=== PATIENT | female | born 2000 | race Caucasian/White ===

== ENCOUNTER 2024-12-30 12:40 | Outpatient (AMB) | payer BC, SELFPAY ==
[2024-12-30 12:44] VITALS: BP 120/72; PULSE 130; O2SAT 99; BMI 18.8
--- NOTE | 2024-12-30 12:44 | MHC.OFFVIS ---
Vital Signs 12/30/24 12:44 Height 5 ft 5 in Weight 113 lb BMI 18.8 BP 120/72 Blood Pressure Location Rt brachial Position Sitting Pulse 130 H Pulse Source Pulse Oximeter Pulse Oximetry (%) 99 Oxygen Delivery Method Room Air Intake Visit Reasons: ENP: Right hand tremors [employer] Required: No Allergies No Known Allergies Allergy (Verified 12/30/24 12:45) Medication List - Last Reconciled 12/30/24 by Kriss Mcdermott MD glycopyrrolate 1 mg PO BID norethindrone (contraceptive) 0.35 mg PO DAILY propranolol 20 mg PO BID rizatriptan 5 mg PO Q2-4H PRN HPI Comments Details: 24y/o Right handed female comes for evaluation of right hand tremors that started 6 years ago . The tremors are with action - mainly writing ( writes with her left hand ) has trouble applying makeup, eating soup, drinking ( uses left).she denies pain . she is not sure of any triggers . she denies shoulder pain but has neck pain and stiffness. No radiating pain form the neck.she also has tightness in her jaws.No family h/o tremors, dystonia. she used to be a dancer- very flexible . [facility] Medical History (Updated 12/30/24 @ 13:42 by Kriss Mcdermott MD) Coarse tremors Hyperhidrosis Underweight Tremor of right hand Migraine Surgical History [facility] teeth removed Family History Father Basal cell carcinoma Paternal Grandmother Breast cancer in female Paternal Grandfather Cancer, colon Social History Alcohol intake: current Physical Exam Vital Signs: Last Vital Signs Pulse 130 H 12/30/24 12:44 BP 120/72 12/30/24 12:44 Pulse Ox 99 12/30/24 12:44 Oxygen Delivery Method Room Air 12/30/24 12:44 BMI result Body Mass Index 18.8 Const General: cooperative, healthy appearing, comfortable and no acute distress Nutritional Appearance: average body habitus Orientation/consciousness: patient oriented x3 Eyes Pupils: Equal, round and reactive pupils present Neuro Other: retrognathia tightness in neck muscles - scalene Right hand high amplitude action tremors - with writing unable to write archimedes spiral was ok General: patient oriented x3, gait normal, tone normal, moves all extremities and no focal motor deficits Cranial nerves: Yes Facial sensation intact/muscles of mastication intact, Yes Equal, round and reactive pupils present, Yes Bilaterally intact EOM present, Yes Nystagmus not present, Yes Normal facial strength present, Yes Midline tongue present, Yes Symmetric palate elevation present and Yes Ability to bilaterally elevate shoulders present Cognition (Neuro): normal cognition Gait exam (Neuro): Normal gait present Motor exam (neuro): 5/5 motor strength present throughout and Normal motor muscle tone present throughout Deep tendon reflexes (DTR's): Right triceps reflex intensity grade: 2+, Left triceps reflex intensity grade: 2+, Rt Biceps (C5, C6): 2+, Left biceps reflex intensity grade: 2+, Right brachioradialis reflex intensity grade: 2+, Left brachioradialis reflex intensity grade: 2+, Right patellar reflex intensity grade: 3+ and Left patellar reflex intensity grade: 3+ Coordination: [id number] test normal Assessment & Plan Assessment & Plan (1) Coarse tremors: Comment: ? focal dystonia Code(s): G25.2 - Other specified forms of tremor Category: Medical Plan Continue propranalol 20mg bid will trial on gabapentin 100mg qhs she will be a good candidate for JB TAPS therapy to improve her quality of life Medications: New gabapentin 100 mg PO BEDTIME 30 caps 0RF Coding Level of Care Code New Pt Level 4 (05294) Complex EM visit Add On G2211 Diagnoses Coarse tremors G25.2
== END 2024-12-30 13:35 | disposition home or self-care (01) ==
LOC: HO.HSMS 12:40
PROVIDERS: PCP Internal Medicine; Visit Provider Psychiatry & Neurology Neurology
DX: G25.2 Other specified forms of tremor (principal)
CPT/HCPCS: 99204

== ENCOUNTER → 2024-12-30 12:40 | Outpatient (BNVA) | payer BC, SELFPAY | PROVIDERS: PCP Internal Medicine; Visit Provider Psychiatry & Neurology Neurology ==

== ENCOUNTER 2025-04-29 15:28 | Outpatient (AMB) | payer BC, SELFPAY ==
--- OUTSIDE RECORDS SUMMARY | 2025-04-24 23:59 | XMS_ITS | Continuity of Care Document ---
Author Organization [facility] Address [address] [place] [address], [address] [address]- Care Team Providers Care Tester [employer] Name Role Phone Stanford JOVEL, Ora Chaves Primary Care Physician Encounter [facility] Date(s): 03/25/25 - 04/24/25 [facility] [address], [address] [place] [address] Attending Physician: Admtr, Ar8 Admitting Physician: Admtr, Ar8 Referring Physician: Admtr, Ar8 Encounter Type: Triage Allergies, Adverse Reactions, Alerts No Known Allergies Immunizations Given and Recorded Vaccine Date Status Refusal Reason influenza virus vaccine, inactivated 08/29/24 Lucian rded influenza virus vaccine, inactivated 08/24/23 Lucian rded influenza virus vaccine, inactivated 08/18/22 Lucian rded SARS-CoV-2 (COVID-19) mRNA BNT-162b2 vac 11/06/21 Recorded tetanus/diphtheria/pertussis, acel(Tdap) 06/17/20 Recorded tetanus/diphtheria/pertussis, acel(Tdap) 01/29/09 Recorded Meningococcal Conjugate Vaccine 04/26/16 Recorded Meningococcal Conjugate Vaccine 01/29/09 Recorded Varicella Virus Vaccine 07/20/15 Recorded Varicella Virus Vaccine 02/22/99 Recorded Poliovirus Vaccine, Inactivated 03/10/03 Recorded Poliovirus Vaccine, Inactivated 98 Recorded Poliovirus Vaccine, Inactivated 98 Recorded Measles/Mumps/Rubella Virus Vaccine 03/10/03 Recor ded Measles/Mumps/Rubella Virus Vaccine 02/22/99 Recor ded diphtheria/tetanus/pertussis, acel(DTaP) 03/10/03 Recorded diphtheria/tetanus/pertussis, acel(DTaP) 06/06/99 Recorded hepatitis B pediatric vaccine 08/26/99 Recorded hepatitis B pediatric vaccine 98 Recorded hepatitis B pediatric vaccine 98 Recorded Haemophilus B Conj Vaccine (oldterm) 06/06/99 Lucian rded Haemophilus B Conj Vaccine (oldterm) 98 Lucian rded Haemophilus B Conj Vaccine (oldterm) 98 Lucian rded Haemophilus B Conj Vaccine (oldterm) 98 Lucian rded Medications glycopyrrolate 1 mg oral tablet 1, tablet, By Mouth, 2 times a day, # 180 tablet, Refills 1, Maintenance, 12/12/24 12:41:00 PM EST, Route to Pharmacy Electronically, [id number], 165.5, cm, 10/31/24 14:02:00 EST, Height Start Date: 12/12/24 Status: Ordered Quantity: 180.0 Unit: tablet Repeat number: 1 magnesium glycinate By Mouth, 0 Refills, Maintenance, 02/27/25 3:26:00 PM EDT, Partial fill upon patient request if the prescription is for a schedule II opioid drug. Start Date: 02/27/25 Status: Ordered Repeat number: 1 naproxen 375 mg oral tablet 1, tablet, By Mouth, 2 times a day, PRN, # 60 tablet, Refills 2, Maintenance, NEEDED FOR PAIN (MODERATE), 05/07/24 12:55:00 PM EDT, Route to Pharmacy Electronically, [id number], 165.5, cm, 05/05/24 11:28:00 EDT, Height, 47.7, kg, 09/22/22 11:31:00 EST, Dry Weight Start Date: 05/07/24 Status: Ordered Quantity: 60.0 Unit: tablet Repeat number: 1 norethindrone 0.35 mg oral tablet 1 tablet, By Mouth, Daily, # 84 tablet, 3 Refills, Maintenance, 03/25/25 7:17:00 PM EDT, [facility]/pharmacy #[id number], 165.5, cm, 03/25/25 19:03:00 EDT, Height Start Date: 03/25/25 Status: Ordered Quantity: 84.0 Unit: tablet Repeat number: 4 propranolol 20 mg oral tablet See Instructions, 10 or 20 mg administered 30 to 60 minutes prior to anxiety- provoking situation; if initial dose is not sufficiently effective. Max daily dose is 40 mg, # 30 tablet, Refills 1, Tot. Refills 1, Maintenance, 03/27/25 9:55:00 AM EDT, Instructions Replace Required Details, Route to Pharmacy Electronically, [facility]/pharmacy #[id number], Partial fill upon patient request if the prescription is for a schedule II opioid drug., 165.5, cm, 03/25/25 19:03:00 EDT, Height Start Date: 03/27/25 Status: Ordered Quantity: 30.0 Unit: tablet Repeat number: 2 rizatriptan 5 mg oral tablet 1 tablet = 5 mg, By Mouth, Once, PRN for migraine headache, take at onset of bad migraine may repeat dose once in 2 hours, # 9 tablet, 4 Refills, Soft Stop, 05/01/23 2:36:00 PM EDT, Tablet, [facility]/pharmacy #[id number], Partial fill upon patient request if the prescription is for a schedule II opioid drug., 165.5, cm, 09/22/22 11:31:00 EST, Height, 47.7, kg, 09/22/22 11:31:00 EST, Dry Weight Start Date: 05/01/23 Status: Ordered Quantity: 9.0 Unit: tablet Repeat number: 5 Problem List Condition Confirmation Course Effective Dates Status Health St atus Informant Hyperhidrosis Confirmed Active Migraine headache Confirmed Active Social History Social History Type Response Smoking Status Never smoker; Tobacc o user in household: No entered on: 9/21/18 Sex Sex Representation Female (finding) Patient Care team information Care Team Personnel Name: Macy JOVEL, Joanne Lockhart Position: [facility] MORTGAGE COUNSELOR MD Member Role: [employer] MORTGAGE COUNSELOR Physician Address: [address], [address] [place] [address]- Telecom: Name: Ora Coyne MD Position: [facility] Physician - Primary Care Member Role: PCP Address: [facility] [place] [address]- Telecom: Care Team Related Persons Name: KYA OROSCO Insurance Providers Guarantor name: ANY OROSCO Health Plan Information #: 1 Payer: BLUE CROSS O Payer Identifier: NA Member Number: [id number] Group Number: [id number] Subscriber Identifier: [id number] Relationship to Subscriber: self Coverage Type: NA Coverage Verification Date: NA Telecom: NA Address:
--- NOTE | 2025-04-29 15:29 | MHC.OFFVIS ---
Vital Signs 04/29/25 15:30 Height 5 ft 5 in Weight 112 lb 6 oz BMI 18.7 BP 106/78 Blood Pressure Location Rt brachial Position Sitting Intake Visit Reasons: Follow up Right hand tremors Intake Note: Patient following up on tremors med trial gabapentin Allergies No Known Allergies Allergy (Verified 04/29/25 15:32) Medication List - Last Reconciled 04/29/25 by Kriss Mcdermott MD gabapentin 100 mg PO BEDTIME glycopyrrolate 1 mg PO BID naproxen 500 mg PO BID norethindrone (contraceptive) 0.35 mg PO DAILY propranolol 20 mg PO BID rizatriptan 5 mg PO Q2-4H PRN HPI Comments Details: 24y/o Right handed female comes for follow up of right hand tremors that started 6 years ago .she could not tolerate gabapentin. The tremors are with action - mainly writing ( writes with her left hand ) has trouble applying makeup, eating soup, drinking ( uses left).she denies pain . she is not sure of any triggers . she denies shoulder pain but has neck pain and stiffness. No radiating pain form the neck.she also has tightness in her jaws.No family h/o tremors, dystonia. she used to be a dancer- very flexible . [facility] Medical History Coarse tremors Hyperhidrosis Underweight Tremor of right hand Migraine Surgical History [place] teeth removed Family History Father Basal cell carcinoma Paternal Grandmother Breast cancer in female Paternal Grandfather Cancer, colon Social History Alcohol intake: current Physical Exam Vital Signs: Last Vital Signs BP 106/78 04/29/25 15:30 BMI result Body Mass Index 18.7 Const General: cooperative, healthy appearing, comfortable and no acute distress Nutritional Appearance: average body habitus Orientation/consciousness: patient oriented x3 Eyes Pupils: Equal, round and reactive pupils present Neuro Other: retrognathia tightness in neck muscles - scalene Right hand high amplitude action tremors - with writing unable to write archimedes spiral was ok General: patient oriented x3, gait normal, tone normal, moves all extremities and no focal motor deficits Cranial nerves: Yes Facial sensation intact/muscles of mastication intact, Yes Equal, round and reactive pupils present, Yes Bilaterally intact EOM present, Yes Nystagmus not present, Yes Normal facial strength present, Yes Midline tongue present, Yes Symmetric palate elevation present and Yes Ability to bilaterally elevate shoulders present Cognition (Neuro): normal cognition Gait exam (Neuro): Normal gait present Motor exam (neuro): 5/5 motor strength present throughout and Normal motor muscle tone present throughout Coordination: [id number] test normal Assessment & Plan Assessment & Plan (1) Coarse tremors: Comment: ? focal dystonia Code(s): G25.2 - Other specified forms of tremor Category: Medical Plan Continue propranalol 20mg bid Could not tolerate gabapentin 100mg qhs I will trial her on JB TAPS therapy to improve her quality of life Coding Level of Care Code Est Pt Level 4 (69565) Diagnoses Coarse tremors G25.2 BFADL Questionnaire: Cut food with a knife and fork: 2 - Able to do activity with a little effort, Use a spoon to drink soup: 3 - Able to do activity with a lot of effort, Hold a cup of tea: 3 - Able to do activity with a lot of effort, Pour milk from a bottle or carton: 3 - Able to do activity with a lot of effort, Wash and dry dishes: 1 - Able to do activity without difficulty, [place] your teeth: 1 - Able to do activity without difficulty, Use a handkerchief to blow your nose: 1 - Able to do activity without difficulty, Use a bath: 1 - Able to do activity without difficulty, Use the lavoratory: 1 - Able to do activity without difficulty, Wash your face and hands: 1 - Able to do activity without difficulty, Tie your shoelaces: 2 - Able to do activity with a little effort, Do up buttons: 3 - Able to do activity with a lot of effort, Do up a zip: 2 - Able to do activity with a little effort, Write a letter: 3 - Able to do activity with a lot of effort, Put a letter in an envelope: 3 - Able to do activity with a lot of effort, Hold and read a newspaper: 1 - Able to do activity without difficulty, Dial a telephone: 1 - Able to do activity without difficulty, Make yourself understood on a telephone: 1 - Able to do activity without difficulty, Watch television: 1 - Able to do activity without difficulty, pst supervisor your change in a shop: 1 - Able to do activity without difficulty, Inset an electrical plug into a socket: 2 - Able to do activity with a little effort, Unlock your front door with a griggs: 2 - Able to do activity with a little effort, Walk up and down stairs: 1 - Able to do activity without difficulty, Get up out of an armchair: 1 - Able to do activity without difficulty and Carry a full shopping ba - Able to do activity without difficulty
[2025-04-29 15:30] VITALS: BP 106/78; BMI 18.7
== END 2025-04-29 15:54 | disposition home or self-care (01) ==
LOC: HO.HSMS 15:29
PROVIDERS: PCP Internal Medicine; Visit Provider Psychiatry & Neurology Neurology
DX: G25.2 Other specified forms of tremor (principal)
CPT/HCPCS: 99214